=== PATIENT | female | born 2000 | race Two or more races ===

== ENCOUNTER 2024-06-29 14:58 | Emergency (ER) | payer OTHER ==
[~2024-06-29] VITALS: Ht 162.6 cm; Wt 54.5 kg
[2024-06-29 19:03] VITALS: BP 123/72; PULSE 75; RESP 18; TEMP 98.705336; O2SAT 99
== END 2024-06-29 19:20 | disposition home or self-care (01) ==
LOC: EMS 14:58
DX: S00.531A Contusion of lip, initial encounter (principal); S80.02XA Contusion of left knee, initial encounter; Y04.8XXA Assault by other bodily force, initial encounter; Y93.89 Activity, other specified; Y92.89 Other specified places as the place of occurrence of the external cause; Y99.8 Other external cause status
CPT/HCPCS: 99283; Z7502